=== PATIENT | female | born 1995 | race Hispanic/Latino ===

== ENCOUNTER 2019-05-04 08:40 | Day surgery (SDC) | payer OTHER, MEDICAID, SELFPAY ==
[2019-04-24 09:15] VITALS: BMI 55.3
[2019-05-04] VITALS (9 sets, daily range): BP systolic 93–131; BP diastolic 54–84; PULSE 77–95; RESP 11–16; TEMP 36.1–36.7; O2SAT 92–98; BMI 55.0
--- NOTE | 2019-05-04 | PATH_ITS ---
[facility] Accession Number: [id number] . 01 Material submitted: . endometrium - ENDOMETRIAL CURETTINGS . 02 Diagnosis: Endometrium, Curettage: Secretory endometrium with features of endometrial polyp. Negative for atypical hyperplasia or malignancy. [facility]/05/05/2019 . 02 Electronically signed: . Earnest Pires MD, PhD, Pathologist NPI- [id number] . 01 Gross description: . ENDOMETRIAL CURETTINGS: Received in formalin are minute fragments of mucoid and hemorrhagic material measuring 0.7 x 0.7 x 0.3 cm in aggregate. Submitted in toto in 1 cassette. /DM /DM . 02 Pathologist provided ICD-10: N84.0 . 02 CPT . 944523 Performed at: 01 [facility] [address], [place], [place] [id number] MD Nazario Moscoso MD Phone: [phone] Performed at: 02 [facility] [address] [place], [place] [id number] MD Evita Coates MD Phone: [phone]
[2019-05-04] MEDS: LACTATED RINGERS 1,000 ML 42 ML IV ×3 (09:25→12:02)
--- NOTE | 2019-05-04 09:37 | SUR.PREOP ---
c\o itching at IV site 'right where it goes in. Declines to remove or alter dressing. Pt unsure if it is the occlusive dressing or the catheter. States 'I'll just deal with it.
--- NOTE | 2019-05-04 10:08 | PM.GYNOP.1 ---
Operative Date/Time/Diagnoses Date of procedure: 05/04/19 Time of procedure: 12:17 Pre-op diagnosis: Pelvic pain Suspect endometriosis Polycystic ovaries Possible uterine septum Post-op diagnosis: same Procedure: Procedures Operation Date: 05/04/19 10:15 <No data on this case meets the specified criteria> Diagnostic laparoscopy D&C hysteroscopy Indications: Pelvic pain Suspect endometriosis Polycystic ovary Possible uterine septum Surgeon: Orquidea Méndez Anesthesia Type: General Operative Notes Findings: Six week size anteverted uterus Normal U uterus, tubes, liver, and gallbladder Appendix not visualized Polycystic appearing ovaries bilaterally No evidence of endometriosis No uterine septum Bilateral fallopian tube ostia were observed Thickened endometrial lining posteriorly Closure Type: primary Specimen(s): endometrial curettings Estimated blood loss (mL): 5 Blood products transfused: none Procedure in detail: After informed consent was obtained, the patient was taken to the operating room where she was placed in the dorsal supine position. After adequate general endotracheal anesthesia was achieved, the patient was prepped and draped in the usual sterile fashion. A time-out was performed. A bivalve speculum was placed into the vagina and the anterior lip of the cervix grasped with a single-tooth tenaculum. The cervical os was sequentially dilated until the Zumi uterine manipulator could pass easily into the endometrial cavity. Single-tooth tenaculum was removed from the anterior lip of the cervix. The bivalve speculum was removed from the vagina. Attention was then turned to the abdomen where 6 cc of 0.5% Marcaine with epinephrine were injected in the umbilical fold. A 5 mm incision was made. A long Veress needle was placed into the peritoneal cavity, and its placement confirmed by aspiration drop test. The abdominal cavity was insufflated with 4.4 L of CO2. The Veress needle was removed, and a long 5 mm trocar was placed without difficulty. 6 cc of 0.5% Marcaine with epinephrine were injected above the umbilical fold. A 2nd 5 mm incision was made. A 2nd 5 mm trocar was placed under direct visualization. Initial inspection of the pelvis and abdomen revealed a normal uterus, polycystic ovaries bilaterally, normal liver and gallbladder, and appendix not visualized. There was no evidence of endometriosis in the anterior or posterior cul-de-sacs, or bilateral ovarian fossa. The instruments were removed from the abdomen. The CO2 was allowed to escape. The incisions were repaired with 4 0 Biosyn in a subcuticular fashion. Steri-Strips, 2 x 2, and op site were placed. Attention was then turned to the vagina. The Zumi uterine manipulator was removed from the uterus. A single-tooth tenaculum was placed on the anterior lip of the cervix after a bivalve speculum was placed into the vagina. The hysteroscope passed easily into the endometrial cavity. Both fallopian tube ostia were observed. There was a thickened endometrium posteriorly. No evidence of a septum. The hysteroscope was removed. Sharp curettage was performed yielding a large amount of endometrial curettings. Single-tooth tenaculum was removed from the anterior lip of the cervix. The bivalve speculum was removed from the vagina. Sponge, lap, and instrument counts were correct x2. The patient tolerated the procedure well, and was taken to PACU in stable condition. Complications: none Post-operative Condition: stable Disposition: PACU Plan for aftercare: Home after recovery
--- NOTE | 2019-05-04 10:28 | PM.HP.1 ---
History of Present Illness Date Patient Seen: 05/04/19 Time Patient Seen: 10:28 Chief complaint: [id number] Narrative: Patient is a 24-year-old with pelvic pain, endometriosis, polycystic ovaries, and possible uterine septum She is here for a diagnostic laparoscopy with possible fulguration of endometriosis, and D&C hysteroscopy with possible resection septum Patient History Medical History (Updated 05/04/19 @ 09:49 by Kimberly Sparks RN) Anxiety (Acute) Bicornuate uterus (Acute) Constipation (Acute) Depression (Acute) History of headache (Acute) History of substance abuse (Acute) Irregular menses (Acute) Marijuana use (Acute) Morbid obesity with BMI of 50.0-59.9, adult (Acute) PCOS (polycystic ovarian syndrome) (Acute) Pelvic pain (Acute) Sciatica (Acute) Sinus drainage (Acute) Sinusitis (Acute 04/05/19) Surgical History (Updated 05/04/19 @ 09:29 by Kimberly Sparks RN) History of tonsillectomy (Acute) Social History household members: family Smoking Status: Current some day smoker Family & Social History Social History: household members family Tobacco & Substance use: Smoking Status Current some day smoker Substance Use Type former substance user Meds Home Medications Medication Instructions Recorded Confirmed Type albuterol sulfate [Ventolin HFA] 1 - 2 puff INH DIRECTED #0 11/18/16 05/04/19 History tramadol 50 mg PO Q6H PRN 05/04/19 05/04/19 History Allergies Allergy/AdvReac Type Severity Reaction Status Date / Time No Known Drug Allergies Allergy Verified 05/04/19 09:26 Exam Vital Signs (past 8 hours): - 05/04/19 09:25 Temperature 98.0 F Pulse Rate 88 Respiratory Rate 16 Blood Pressure 108/60 Pulse Oximetry 98 Oxygen Delivery Method Room Air Narrative Exam Narrative: HEENT: No thyromegaly, no anterior cervical or supraclavicular lymphadenopathy. Lungs:Clear to auscultation bilaterally, no wheezes. Cardiovascular: Regular rate and rhythm, no murmurs, rubs, or gallops. Abdomen: No scars. No hepatosplenomegaly. No masses palpable. External genitalia: Normal Vagina: Normal Cervix: Normal Bimanual exam: 6 Week size uterus. Mobile. Rectal: No masses. Assessment & Plan Assessment & Plan narrative: Assessment: 24-year-old with pelvic pain, endometriosis, possible uterine septum, and polycystic ovaries Plan: Diagnostic laparoscopy with possible fulguration of endometriosis D&C hysteroscopy with possible resection of septum The risks, benefits, and alternatives to the procedure were explained to the patient. The risks including bleeding, infection, injury to the bowel, bladder, ureters, or possible uterine perforation. She understands these risks and agrees to proceed. A full par Q was held and consent form was signed. Time Spent With Patient Time with patient: 15-24 minutes
--- NOTE | 2019-05-04 10:30 | PM.PREOP ---
Pre-operative Note Interval Note History & Physical reviewed/Exam performed by Physician: Yes Changes to H&P: No
--- NOTE | 2019-05-04 10:36 | SUR.PREOP ---
1035 LLE nerve block by Dr. Olson, patient drowsy, oriented/responsive throughout. On O2 at 2l continuous and monitor prior to medication administration. See EMAR. Pt. tolerated the procedure well. Glasses placed in her backpack by her .
[2019-05-04] MEDS: BUPIVACAINE 0.5% W/ EPI (PF) VIAL 30 ML INJ (11:30)
[2019-05-04] MEDS: fentaNYL 100 MCG/2 ML INJ 50 MCG IV (12:02)
[2019-05-04] MEDS: OXYCODONE/ACETAMINOPHEN 5/325 TABLET 1 TAB PO (12:15)
--- NOTE | 2019-05-04 12:29 | SUR.PREOP ---
1040 late entry test negative per Zander Ornelas RN. Reported to doctors by same.
== END 2019-05-04 13:35 | disposition home or self-care (01) ==
PROVIDERS: PCP Nurse Practitioner; Visit Provider Obstetrics & Gynecology
PROC: 0U5B4ZZ Destruction of Endometrium, Percutaneous Endoscopic Approach (ICD-10-PCS; CPT 58662; principal; 2019-05-04 10:15)
PROC: 0UDB8ZZ Extraction of Endometrium, Via Natural or Artificial Opening Endoscopic (ICD-10-PCS; CPT 58558; 2019-05-04 10:15)
DX: N84.0 Polyp of corpus uteri (principal); E28.2 Polycystic ovarian syndrome; E66.01 Morbid (severe) obesity due to excess calories; J45.909 Unspecified asthma, uncomplicated
CPT/HCPCS: 49320; 58558; J0330; J1100; J2405; J2704; J3010

== ENCOUNTER → 2021-02-09 13:23 | Outpatient (CLI) | payer OTHER, MEDICAID, SELFPAY ==
[2021-02-09 13:52] LABS: COVID19 -Nasal RAPID Negative (Negative)
== END ==
PROVIDERS: PCP Nurse Practitioner; Visit Provider Student in an Organized Health Care Education/Training Program
DX: R09.89 Other specified symptoms and signs involving the circulatory and respiratory systems (principal); R52 Pain, unspecified; Z20.822 Contact with and (suspected) exposure to COVID-19
CPT/HCPCS: 87635